=== PATIENT | female | born 1975 | race Caucasian/White ===

== ENCOUNTER 2017-05-18 20:52 | Emergency (ER) | payer OTHER ==
[2014-01-19 08:44] VITALS: BMI 20.9
[2017-05-18 21:24] LABS: BASOPHILS 0.3 % (0-2); EOSINOPHILS 4.1 % (0-7); HEMATOCRIT 45.3 % (36.0-48.0); HEMOGLOBIN 15.3 g/dL (12-16); IMMATURE GRANULOCYTES 0.2 % (0-5); LYMPHOCYTES 2.4 % (15-50); MCH 30.8 pg (26.0-34.0); MCHC 33.8 g/dL (31.0-37.0); MCV 91.1 fL (80.0-100.0); MEAN PLATELET VOLUME 9.6 fL (7.4-10.4); MONOCYTES 3.4 % (2-11); NEUTROPHILS 89.6 % (40-80); PLATELET COUNT 252 10x3/uL (130-400); RBC 4.97 10x6/uL (4.00-5.40); WBC 10.5 10x3/uL (4.8-10.8)
[2017-05-18 21:39] LABS: ANION GAP 17.2 mmol/L (8-16); BILIRUBIN - TOTAL 0.5 mg/dL (0.2-1.3); CALCIUM 8.9 mg/dL (8.5-10.1); CARBON DIOXIDE 21.7 mmol/L (21.0-32.0); CREATININE - SERUM 0.9 mg/dL (0.6-1.3); POTASSIUM - SERUM 3.9 mmol/L (3.5-5.1); PROTEIN - SERUM 7.2 g/dL (6.4-8.2)
== END 2017-05-18 23:04 | disposition home or self-care (01) ==
LOC: D.ER 20:52
PROVIDERS: Emergency Medicine
DX: K52.9 Noninfective gastroenteritis and colitis, unspecified (principal); R10.9 Unspecified abdominal pain; J44.9 Chronic obstructive pulmonary disease, unspecified; F17.200 Nicotine dependence, unspecified, uncomplicated

== ENCOUNTER 2019-06-26 15:11 | Emergency (ER) | payer MEDICAID ==
[~2019-06-26] VITALS: Ht 157.5 cm; Wt 56.8 kg
[2019-06-26 15:19] VITALS: Ht 157.5 cm; Wt 56.8 kg
[2019-06-26 15:52] LABS: BASOPHILS 0.8 % (0-2); EOSINOPHILS 3.9 % (0-7); HEMATOCRIT 45.3 % (36.0-48.0); HEMOGLOBIN 15.7 g/dL (12-16); IMMATURE GRANULOCYTES 0.3 % (0-5); LYMPHOCYTES 28.4 % (15-50); MCH 31.1 pg (26.0-34.0); MCHC 34.7 g/dL (31.0-37.0); MCV 89.7 fL (80.0-100.0); MEAN PLATELET VOLUME 9.9 fL (7.4-10.4); MONOCYTES 5.2 % (2-11); NEUTROPHILS 61.4 % (40-80); PLATELET COUNT 373 10x3/uL (130-400); RBC 5.05 10x6/uL (4.00-5.40); RDW 13.2 % (11.5-14.5)
[2019-06-26 16:00] LABS: INR 1.02 (0.85-1.17); PROTIME 12.9 SECONDS (11.6-15.0)
[2019-06-26 16:01] LABS: APTT 29.7 SECONDS (22.8-39.4)
[2019-06-26 16:46] LABS: APPEARANCE CLEAR (CLEAR); BILIRUBIN NEGATIVE (NEGATIVE); COLOR YELLOW (YELLOW); GLUCOSE NEGATIVE (NEGATIVE); KETONE NEGATIVE (NEGATIVE); NITRITE NEGATIVE (NEGATIVE); PROTEIN NEGATIVE (NEGATIVE); UROBILINOGEN NORMAL (NORMAL)
[2019-06-26 16:48] LABS: CALC OSMOLALITY 283 mosm/kg (275-300); CALCIUM 8.2 mg/dL (8.5-10.1); CARBON DIOXIDE 27.2 mmol/L (21.0-32.0); CHLORIDE - SERUM 106 mmol/L (98-107); CREATININE - SERUM 0.9 mg/dL (0.6-1.3); GLUCOSE 85 mg/dL (74-106); POTASSIUM - SERUM 3.6 mmol/L (3.5-5.1); SODIUM 142 mmol/L (136-145); UREA NITROGEN 19 mg/dL (7-18); eGFR NON AFRICAN AMERICAN 71 mL/min (90-120)
[2019-06-26 16:53] LABS: UDS - AMPHET NEGATIVE QUAL (NEGATIVE); UDS - BARB NEGATIVE QUAL (NEGATIVE); UDS - BENZO NEGATIVE QUAL (NEGATIVE); UDS - COCAINE NEGATIVE QUAL (NEGATIVE); UDS - OPIATE NEGATIVE QUAL (NEGATIVE); UDS - PCP NEGATIVE QUAL (NEGATIVE); UDS - THC POSITIVE QUAL (NEGATIVE)
[2019-06-26 17:02] LABS: ALBUMIN 3.3 g/dL (3.4-5.0); ALKALINE PHOSPHATASE 54 U/L (46-116); ALT (SGPT) 16 U/L (10-68); BILIRUBIN - TOTAL 0.27 mg/dL (0.2-1.3); CKMB 0.2 U/L (0.0-3.6); CREATINE KINASE 77 UL (21-215); PROTEIN - SERUM 6.3 g/dL (6.4-8.2); THYROID STIMULATING HORMONE 0.91 uIU/mL (0.36-3.74)
[2019-06-26 17:03] LABS: TROPONIN-I < 0.017 ng/mL (0.000-0.060)
[2019-06-26] MEDS ORDERED: FLUTICASONE PRO16 GM NASAL (17:38)
[2019-06-26] MEDS ORDERED: ZOVIRAX800 MG PO (17:38)
[2019-06-26] MEDS ORDERED: GABAPENTIN100 MG PO (17:38)
[2019-06-26] MEDS ORDERED: PREDNISONE20 MG PO (17:38)
[2019-06-26 17:56] VITALS: BP 109/77
== END 2019-06-26 18:03 | disposition home or self-care (01) ==
LOC: D.ER 15:11
PROVIDERS: Emergency Medicine
DX: G51.0 Bell's palsy (principal); B34.9 Viral infection, unspecified; Z86.718 Personal history of other venous thrombosis and embolism

== ENCOUNTER 2019-08-20 09:26 | Emergency (ER) | payer MEDICAID ==
[~2019-08-20] VITALS: Ht 157.5 cm; Wt 50.9 kg
[~2019-08-20 09:26] MED LIST: FLUTICASONE PRO16 GM NASAL; GABAPENTIN100 MG PO; PREDNISONE20 MG PO; ZOVIRAX800 MG PO
[2019-08-20 09:40] VITALS: Ht 157.5 cm; Wt 50.9 kg
[2019-08-20 10:28] VITALS: BP 109/80
[2019-08-20] MEDS ORDERED: PHENERGAN25 M1 PO (12:08)
[2019-08-20] MEDS ORDERED: MECLIZINE HCL25 MG PO (12:08)
== END 2019-08-20 12:48 | disposition home or self-care (01) ==
LOC: D.ER 09:26
DX: R42 Dizziness and giddiness (principal); D35.4 Benign neoplasm of pineal gland; M54.9 Dorsalgia, unspecified

== ENCOUNTER → 2020-02-16 11:18 | Outpatient (CLI) | payer MEDICAID ==
[2019-08-20 09:40] VITALS: BMI 20.5
[~2020-02-16 11:18] MED LIST changes: +MECLIZINE HCL25 MG PO; +PHENERGAN25 M1 PO
--- NOTE | 2020-02-18 08:19 | ST ---
PATIENT:FLEX MEDINA MEDICAL RECORD: [id number] SEX: F LOCATION:[facility] ORDER #: ADMISSION DATE: 02/16/20 AGE OF PATIENT: 44 REFERRING PHYSICIAN: INTERPRETING PHYSICIAN: KANDICE FONTANEZ MD DATE OF SERVICE: 02/16/2020 Baseline ECG is normal. Exercised for 7 minutes 40 seconds on John protocol. Maximum heart rate of 101 beats per minute, less than 85% of max predicted. No ECG changes or ischemia. No symptoms of ischemia. Normal blood pressure response to exercise. No arrhythmias noted. Casc-vv-kshl exercise tolerance for age. TRANSINT:[id number] Voice Confirmation ID: [id number] DOCUMENT ID: [id number] KANDICE FONTANEZ MD at 0819 CC: [id number] DICTATION DATE: 02/17/20 1303 COMPUTER ENGINEER: 02/18/20 0157 DEP CLI 02/16/20 [id number] [place] [address]
--- NOTE | 2020-02-18 08:19 | EC ---
PATIENT:FLEX MEDINA DATE OF SERVICE: 02/16/20 SEX: F MEDICAL RECORD: [id number] DATE OF : 71 [facility] AGE OF PATIENT: 44 ADMISSION DATE: 02/16/20 REFERRING PHYSICIAN: INTERPRETING PHYSICIAN: KANDICE FONTANEZ MD ECHOCARDIOGRAM REPORT ECHO CHARGES 4 ECHO COMPLETE Date: 02/16/20 CLINICAL DIAGNOSIS: ANGINA/HEART MURMUR ECHOCARDIOGRAPHIC MEASUREMENTS (adult normal given) AC root (d.<3.7cm) 2.8 cm LV Septum d (<1.2 cm> 0.90 cm Valve Excursion 1.1 cm LV Septum (systole) 1.2 cm Left Atria (s.<4.0cm> 2.5 cm LVPW d(<1.2cm) 1.0 cm RV (d.<2.3cm) 3.0 cm LVPW (sytole) 1.2 cm LV diastole(<5.6CM) 3.4 cm MV E-F(>70mm/sec) cm LV systole 1.9 cm LVOT Diameter 1.6 cm MV exc.(>10mm) 1.6 cm Est.ejection fraction (50-75%) % DOPPLER: LVIT cm/sec A 48.0 cm/sec E 72.0 cm/sec LA cm/sec RVSP 29 mmHg LVOT 68 cm/sec AOP1/2T m/s Asc. Ao 102 cm/sec RVOT 63 cm/sec RA cm/sec PA 83 cm/sec AV Gradient Peak 4.13 mmHg AV Mean 2.22 mmHg AV Area 1.5 cm MV Gradient Peak 2.97 mmHg MV Mean 1.14 mmHg MV Area cm COMMENTS: Supervisor Assembly And Packing: 2 ANDRES MILLS Residential Housekeeper: 3 Dr. Workman TAPE# PACS Pericardial Effusion N DATE OF SERVICE: Adequate 2D, color flow imaging, spectral Doppler, and M-Mode. No LVH. LV internal dimension is normal. Wall motion is normal. EF is greater than or equal to 55%. Aortic valve is tricuspid. No evidence of stenosis by Doppler interrogation. Left atrium is normal. Mitral valve shows no prolapse. Trivial MR. Right-sided chambers are grossly normal. Trivial TR. 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
== END | disposition home or self-care (01) ==
LOC: D.HCCECHO 11:18
PROVIDERS: ATTEND Internal Medicine Interventional Cardiology
DX: I20.9 Angina pectoris, unspecified (principal)

== ENCOUNTER 2020-09-25 16:00 | Outpatient (CLI) | payer MEDICAID ==
[2019-08-20 09:40] VITALS: BMI 20.5
== END 2020-09-25 23:59 | disposition home or self-care (01) ==
LOC: D.MAMMO 16:00
PROVIDERS: ATTEND Family Medicine
DX: Z12.31 Encounter for screening mammogram for malignant neoplasm of breast (principal)